=== PATIENT | male | born 1930 | race Caucasian/White ===

== ENCOUNTER → 2020-03-08 | Outpatient (CLI) | payer OTHER | LOC: M.RAD 13:43 | PROVIDERS: ATTEND Internal Medicine | DX: J84.10 Pulmonary fibrosis, unspecified (principal); I70.0 Atherosclerosis of aorta; M19.011 Primary osteoarthritis, right shoulder; M19.012 Primary osteoarthritis, left shoulder ==

== ENCOUNTER → 2020-09-27 | Outpatient (CLI) | payer OTHER | LOC: M.LAB 11:44 | PROVIDERS: ATTEND Nurse Practitioner | DX: R00.2 Palpitations (principal) ==